=== PATIENT | female | born 1985 | race Caucasian/White ===

== ENCOUNTER 2019-06-03 16:20 | Emergency (ER) | payer MEDICAID ==
[2019-06-03 16:28] VITALS: BP 189/115
[2019-06-03] MEDS ORDERED: LIDOCAINE-EPINEPH-TETRACAINE 3 ML SYRINGE TOP ONE (17:10)
[2019-06-03] MEDS ORDERED: LIDOCAINE-EPINEPH-TETRACAINE 3 ML SYRINGE TOP STA (17:22)
--- NOTE | 2019-06-03 17:25 | ED Physician Documentation ---
History of Present Illness - Stated complaint Stated Complaint: HEAD LAC - Chief complaint Chief Complaint: Wound - History obtained from History obtained from: Patient - History of Present Illness Timing: Today Pain level max: 0 Pain level now: 0 - Additonal information Additional information: 33-year-old female presents to the emergency department complaining of a swelling to the left side of the head for the past several years. Has greatly increased in size and today drained "pus". No fevers. Nothing makes it better or worse. 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 HEENT: Tonsil/Adenoidectomy - Present Medications Home Medications: Ambulatory Orders Medication Instructions Recorded Confirmed oxyCODONE/ACET 5/325 [Percocet 5 1 - 2 each PO Q4-6H PRN #30 tablet 04/16/ mg/325 mg] Cephalexin [Keflex] 500 mg PO Q6H #28 capsule 06/03/19 - Allergies Allergies/Adverse Reactions: Allergies Allergy/AdvReac Type Severity Reaction Status Date / Time hydrocodone bitartrate * Allergy Itching Verified 06/03/19 16:28 [From Vicodin] - Social History Does the pt smoke?: Yes Smoking Status: Current every day smoker Does the pt drink ETOH?: Yes ETOH Use: Beer Does the pt have substance abuse?: Yes Substance Use and Type: Marijuana - Immunizations Immunizations are current?: Yes PD ED PE NORMAL - Vitals Vital signs reviewed: Yes - General General: Alert and oriented X 3, No acute distress - HEENT HEENT: Moist mucous membranes, Other (2 x 3 cm cyst to the left side of the head.) - Neck Neck: Supple, no meningeal sign - Derm Derm: Warm and dry - Neuro Neuro: Alert and oriented X 3 Results - Vitals Vitals: Vital Signs - 24 hr 06/03/19 16:26 Temperature 36.9 C Heart Rate 115 H Respiratory 16 Rate Blood Pressure 189/115 H O2 Saturation 100 Oxygen O2 Source Room air Procedures - Abscess I&D (location) Left side of the head Preparation: Chlorhexadine, LET Incision: Incised with scalpel, Purulent drainage, Culture obtained, Other (Cyst sac removed) Other: Pt tolerated well PD MEDICAL DECISION MAKING - ED course Complexity details: considered differential, d/w patient ED course: 33-year-old female with an infected left temporal cyst. This was excised and drained. The cyst was removed. Will place on antibiotics for home. Patient counseled regarding signs and symptoms for which I believe and urgent re- evaluation would be necessary. Patient with good understanding of and agreement to plan and is comfortable going home at this time This document was made in part using voice recognition software. While efforts are made to proofread this document, sound alike and grammatical errors may occur. Departure - Departure Disposition: 01 Home, Self Care Clinical Impression: Infected cyst of skin Condition: Good Instructions: ED [facility] Cyst IandD Follow-Up: your,doctor in 3 days for wound check [Other] Prescriptions: Cephalexin [Keflex] 500 mg PO Q6H #28 capsule Comments: Take all antibiotics until gone. Return if you worsen. Follow-up with your doctor for further care. Return especially for redness, swelling or drainage from the wound. The cyst sac was also removed today.
== END 2019-06-03 17:33 | disposition home or self-care (01) ==
LOC: ED 16:20
DX: L72.9 Follicular cyst of the skin and subcutaneous tissue, unspecified (principal); L08.9 Local infection of the skin and subcutaneous tissue, unspecified; I10 Essential (primary) hypertension; F17.200 Nicotine dependence, unspecified, uncomplicated
CPT/HCPCS: 10060; 87070; 87205

== ENCOUNTER 2021-04-03 12:18 | Emergency (ER) | payer MEDICAID ==
[2021-04-03 12:25] VITALS: BP 150/100
--- NOTE | 2021-04-03 12:38 | ED Physician Documentation ---
History of Present Illness - Stated complaint Stated Complaint: RT ANKLE INJ - Chief complaint Chief Complaint: Trauma Ext - Additonal information Additional information: 35-year-old female presents with acute right ankle injury after rolling her foot when stepping off a curb when she did not notice the step-off secondary to lack of color differentiation. Did not strike her head. She has been able to bear partial weight. Lateral malleolar swelling. No history of previous injury to his foot or ankle. 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 HEENT: Tonsil/Adenoidectomy - Present Medications Home Medications: Ambulatory Orders Medication Instructions Recorded Confirmed oxyCODONE/ACET 5/325 [Percocet 5 1 - 2 each PO Q4-6H PRN #30 tablet 04/16/ mg/325 mg] cephALEXin [Keflex] 500 mg PO Q6H #28 capsule 06/03/19 - Allergies Allergies/Adverse Reactions: Allergies Allergy/AdvReac Type Severity Reaction Status Date / Time hydrocodone bitartrate * Allergy Itching Verified 04/03/21 12:22 [From Vicodin] - Social History Does the pt smoke?: Yes Smoking Status: Current every day smoker Does the pt drink ETOH?: Yes Does the pt have substance abuse?: Yes - Immunizations Immunizations are current?: Yes PD ED PE EXPANDED - General General: Alert, No acute distress - Extremities Extremities: Right ankle (tenderness and swelling distal to the lateral mallolous. FULL passive ROM. midl swelling. no pain medially. no pain at base/proximal 5th mettarsal) Results - Vitals Vitals: Vital Signs - 24 hr 04/03/21 12:22 Temperature 36.5 C Heart Rate 100 Respiratory 16 Rate Blood Pressure 150/100 H O2 Saturation 100 Oxygen O2 Source Room air - Rads (name of study) right ankle Radiology: Final report received (No visualized fracture or dislocation.) PD MEDICAL DECISION MAKING - ED course Complexity details: d/w patient ED course: Acute right ankle pain after rolling or inverting her ankle when stepping off a curb which she did not notice. There is tenderness and swelling distal to the lateral malleolus but x-ray negative for acute fracture. Patient is able to bear partial weight. She was placed in air splint and given crutches. Recommend ibuprofen and rice precautions. Follow-up if not markedly better in 7 to 10 days. Departure - Departure Disposition: 01 Home, Self Care Clinical Impression: Moderate right ankle sprain Qualifiers: Encounter type: initial encounter Qualified Code(s): S93.401A - Sprain of unspecified ligament of right ankle, initial encounter Condition: Stable Record reviewed to determine appropriate education?: Yes Instructions: ED Sprain Ankle W X Ray Comments: The x-ray of your ankle does not show a broken bone. In some rare cases very subtle fractures are missed on the first x-ray. I do think however that this is more likely a sprain. I would like you to use the air splint when out of bed as well as crutches. I do recommend motrin 600 mg with food three times a day or tylenol 500 mg three times a day for discomfort. I would expect pain and swelling to be markedly better over the next 7 to 10 days. If not markedly improved or ability to bear weight does not improve then please return to the ER for a second look.
--- NOTE | 2021-04-03 13:02 | XRAY Report ---
PROCEDURE: Ankle 3 View RT INDICATIONS: pain after inversion injury TECHNIQUE: 3 views of the ankle were acquired. COMPARISON: None FINDINGS: Bones: No fractures or dislocations. Ankle mortise is normally aligned. No suspicious bony lesions . Soft tissues: Lateral malleolar edema is noted. Achilles tendon appears normal. IMPRESSION: No visualized acute fracture or dislocation. However, occult injury cannot be excluded. Recommend short interval imaging follow-up in 7-10 days as clinically indicated for additional evalua tion. Reviewed by: Martha Pham MD on 04/03/2021 1:00 PM PDT Approved by: Martha Pham MD on 04/03/2021 1:00 PM PDT Station ID: [id number]
[2021-04-03] MEDS ORDERED: IBUPROFEN 600 MG TABLET PO STA (13:07)
== END 2021-04-03 14:57 | disposition home or self-care (01) ==
LOC: ED 12:18
DX: S93.401A Sprain of unspecified ligament of right ankle, initial encounter (principal); X50.1XXA Overexertion from prolonged static or awkward postures, initial encounter; I10 Essential (primary) hypertension; F17.200 Nicotine dependence, unspecified, uncomplicated
CPT/HCPCS: 73610; 99282; 99283; A9270

== ENCOUNTER 2022-04-10 08:00 | Outpatient (CLI) | payer MEDICAID ==
--- NOTE | 2022-04-10 11:40 | XRAY Report ---
PROCEDURE: Shoulder 3 View LT INDICATIONS: L SHOULDER PX AFTER A FALL TECHNIQUE: 3 views of the shoulder were acquired. COMPARISON: None. FINDINGS: Bones: No fractures or dislocations. No suspicious bony lesions. Visualized ribs appear intact. Soft tissues: No suspicious soft tissue calcifications. IMPRESSION: No fracture or dislocation. Reviewed by: Gibson Holland MD on 04/10/2022 11:38 AM PDT Approved by: Gibson Holland MD on 04/10/2022 11:38 AM PDT Station ID: [id number]
== END 2022-04-10 23:59 | disposition home or self-care (01) ==
LOC: DI.N 08:00
PROVIDERS: ATTEND Nurse Practitioner
DX: M25.512 Pain in left shoulder (principal)

== ENCOUNTER 2023-05-14 10:41 | Outpatient (CLI) | payer OTHER ==
--- NOTE | 2023-05-15 11:18 | Ultrasound Report ---
LIMITED ULTRASOUND OF LEFT BREAST AND AXILLA: 05/14/2023 CLINICAL: Palpable left breast lump. No prior exams were available for comparison. Color flow ultrasound of the left breast 7 o'clock, 11 o'clock, and axilla regions was performed. G ray scale images of the real-time examination were reviewed. There is a 0.7 cm x 0.5 cm x 0.6 cm wider than tall oval mass in the left breast at 11 o'clock middle depth 5 cm from the nipple. This oval mass is hypoechoic with an ill-defined echogenic boundary. T his correlates as palpated, with mammography findings, and area of clinical concern. There also is a 0.6 cm x 0.4 cm x 0.5 cm wider than tall mass in the left breast at 7 o'clock anterio r depth 4 cm from the nipple. This mass is hypoechoic with an ill-defined echogenic boundary that is likely related to associated adjacent edema. This area measures up to 1.8 x 0.7 cm in size and was n ot visible on mammographic evaluation. This correlates as palpated, with mammography findings, and a kamilla of clinical concern. Color flow imaging demonstrates that there is no vascularity present. No significant abnormalities were seen sonographically in the left axilla. IMPRESSION: PROBABLY BENIGN The 0.7 cm x 0.5 cm x 0.6 cm wider than tall oval mass in the left breast at 11 o'clock middle depth resembles fat necrosis and is probably benign. The 0.6 cm x 0.4 cm x 0.5 cm wider than tall mass in the left breast at 7 o'clock anterior depth rese mbles fat necrosis and is probably benign. There is no abnormality seen in the left breast to correspond with the area of clinician palpable are a of concern at 7 o'clock. Recommend clinical follow up for persistent or worsening symptoms, or development of any clinically s uspicious findings. A follow-up left mammogram and a left ultrasound in 6 months is recommended to demonstrate stability. Findings and recommendations were conveyed to the patient during today's evaluation. This exam was interpreted at Station ID: [id number]. Electronically Signed By: Reid Grant M.D. aty/:05/14/2023 12:11:06 Ultrasound BI-RADS: 3 Probably benign BI-RADS CATEGORY: (3) - 3 Mammo and [place] [id number] 6 month follow-up LATERALITY: (L)
--- NOTE | 2023-05-15 11:18 | Mammography Report ---
BILATERAL DIGITAL DIAGNOSTIC MAMMOGRAM 3D/2D: 05/14/2023 CLINICAL: Baseline exam. Palpable left breast lumps. No prior exams were available for comparison. There are scattered areas of fibroglandular density in both breasts (category b / 25%-50% glandular t issue). There is an oval low density focal asymmetry in the left breast at 11 o'clock middle depth. This cor relates as palpated, with area of clinical concern, and skin marker. There also is an oval low density focal asymmetry in the left breast at 7 o'clock anterior depth. Th is correlates as palpated, with area of clinical concern, and skin marker. No other significant masses, calcifications, or other findings are seen in either breast. IMPRESSION: INCOMPLETE: NEEDS ADDITIONAL IMAGING EVALUATION The oval low density focal asymmetry in the left breast at 11 o'clock middle depth is consistent with fat necrosis and is indeterminate. An ultrasound is recommended for further evaluation and is sched uled to immediately follow this examination. The oval low density focal asymmetry in the left breast at 7 o'clock anterior depth is consistent wit h fat necrosis and is indeterminate. An ultrasound is recommended for further evaluation and is sche duled to immediately follow this examination. Based on the Tyrer Cuzick model (a risk assessment model) the patients lifetime risk is 12.9% and he r 10 year risk is 1.3%. According to the ACR, ACS, and NCCN guidelines, an annual breast MRI exam nicole ng with mammogram is recommended if the patients lifetime risk is 20% or greater. This exam was interpreted at Station ID: [id number]. NOTE: For mammograms, a report in lay terms will be sent to the patient. Approximately 15% of breast malignancies will not be visualized mammographically. In the management of a palpable breast mass, a negative mammogram must not discourage biopsy of a clinically suspicious lesion. Electronically Signed By: Reid Grant M.D. aty/:05/14/2023 12:05:15 ACR BI-RADS Category 0: Incomplete 3340F PARENCHYMAL PATTERN: (A) - The breast(s) demonstrate(s) scattered fibroglandular densities. BI-RADS CATEGORY: (0) - 0 Ultrasound [id number] Immediate follow-up LATERALITY: (L)
== END 2023-05-14 10:42 | disposition home or self-care (01) ==
LOC: DI 10:41
PROVIDERS: ATTEND Family Medicine
DX: N63.24 Unspecified lump in the left breast, lower inner quadrant (principal); N63.22 Unspecified lump in the left breast, upper inner quadrant